=== PATIENT | female | born 1935 | race Caucasian/White ===

== ENCOUNTER 2020-02-06 10:14 | Outpatient (REF) | payer MEDICARE, SELFPAY ==
[2020-02-06 11:41] LABS: Hematocrit 38.5 % (37-47); Hemoglobin 12.8 g/dl (12.0-16.0); Mean Corpuscular HGB Conc 33.2 g/dl (31.0-35.0); Mean Corpuscular Hemoglobin 29.9 pg (27.0-33.0); Mean Platelet Volume 11.2 fL (9.4-12.3); Platelet Count 275 X10*3/uL (160-400); Red Blood Count 4.28 X10*6/uL (4.20-5.50); Red Cell Distribution Width 13.8 % (11.0-16.0); White Blood Count 6.1 X10*3/uL (4.8-10.8)
[2020-02-06 12:04] LABS: Alanine Aminotransferase 15 U/L (0-31); Albumin Level 4.5 g/dL (3.5-5.0); Alkaline Phosphatase 73 U/L (39-117); Anion Gap 14 (12-20); Aspartate Amino Transferase 19 U/L (5-31); Bilirubin Total 0.6 mg/dL (0.0-1.0); Blood Urea Nitrogen 19 mg/dL (9-16); Calcium 9.4 mg/dL (8.4-10.2); Carbon Dioxide 27 mmol/L (22-29); Chloride 103 mmol/L (96-108); Estimated Glomerular Filt Rate > 60; Glucose Random 103 mg/dL (60-115); Potassium 4.4 mmol/l (3.3-5.1); Sodium 140 mmol/L (135-145); Total Protein 7.4 g/dL (6.5-8.0)
[2020-02-06 12:13] LABS: Thyroid Stimulating Hormone 4.18 mIU/mL (0.32-4.0)
== END 2020-02-06 10:15 | disposition home or self-care (01) ==
LOC: HO.HMGCLDS 10:14
PROVIDERS: PCP Internal Medicine; Visit Provider Internal Medicine
DX: E03.9 Hypothyroidism, unspecified (principal); I10 Essential (primary) hypertension
CPT/HCPCS: 36415; 80053; 84443; 85027

== ENCOUNTER 2020-06-21 07:40 | Outpatient (REF) | payer MEDICARE, SELFPAY ==
[2020-06-21 12:03] LABS: TSH reflex Free T4 1.21 uIU/mL (0.32-4.0)
[2020-06-21 12:07] LABS: Alanine Aminotransferase 16 U/L (0-31); Albumin Level 4.5 g/dL (3.5-5.0); Alkaline Phosphatase 69 U/L (39-117); Anion Gap 12 (12-20); Aspartate Amino Transferase 18 U/L (5-31); Bilirubin Total 0.6 mg/dL (0.0-1.0); Blood Urea Nitrogen 18 mg/dL (9-16); Calcium 9.5 mg/dL (8.4-10.2); Carbon Dioxide 30 mmol/L (22-29); Chloride 105 mmol/L (96-108); Estimated Glomerular Filt Rate > 60; Glucose Fasting 97 mg/dL (60-99); Potassium 4.3 mmol/L (3.3-5.1); Sodium 143 mmol/L (135-145); Total Protein 7.4 g/dL (6.5-8.0)
== END 2020-06-21 07:41 | disposition home or self-care (01) ==
LOC: HO.HMGCLDS 07:40
PROVIDERS: PCP Internal Medicine; Visit Provider Internal Medicine
DX: E03.9 Hypothyroidism, unspecified (principal); I10 Essential (primary) hypertension; F41.9 Anxiety disorder, unspecified
CPT/HCPCS: 36415; 80053; 84443

== ENCOUNTER 2020-10-13 08:34 | Outpatient (REF) | payer MEDICARE, SELFPAY ==
[2020-10-13 11:43] LABS: Hematocrit 35.8 % (37-47); Hemoglobin 11.8 g/dl (12.0-16.0); Mean Corpuscular Hemoglobin 29.6 pg (27.0-33.0); Mean Corpuscular Volume 89.7 fL (80-98); Platelet Count 240 X10*3/uL (160-400); Red Blood Count 3.99 X10*6/uL (4.20-5.50); Red Cell Distribution Width 13.9 % (11.0-16.0); White Blood Count 5.9 X10*3/uL (4.8-10.8)
[2020-10-13 12:04] LABS: Alanine Aminotransferase 15 U/L (0-31); Albumin Level 4.4 g/dL (3.5-5.0); Alkaline Phosphatase 61 U/L (39-117); Anion Gap 12 (12-20); Aspartate Amino Transferase 17 U/L (5-31); Bilirubin Total 0.6 mg/dL (0.0-1.0); Blood Urea Nitrogen 21 mg/dL (9-16); Calcium 9.2 mg/dL (8.4-10.2); Carbon Dioxide 24 mmol/L (22-29); Chloride 110 mmol/L (96-108); Cholesterol 178 mg/dL; Estimated Glomerular Filt Rate > 60; Glucose Fasting 101 mg/dL (60-99); HDL Cholesterol 49 mg/dL; LDL Cholesterol Calculated 107 mg/dl; Sodium 142 mmol/L (135-145); Total Protein 6.9 g/dL (6.5-8.0); Triglycerides 114 mg/dL
[2020-10-13 12:25] LABS: TSH reflex Free T4 3.51 uIU/mL (0.32-4.0); Vitamin D 25-OH Total 38.3 ng/mL (>30)
[2020-10-13 12:27] LABS: Folate > 20.0 ng/mL (> or = 4.0); Vitamin B12 1117 pg/mL (200-900)
== END 2020-10-13 08:35 | disposition home or self-care (01) ==
LOC: HO.HMGCLDS 08:34
PROVIDERS: PCP Internal Medicine; Visit Provider Internal Medicine
DX: E03.9 Hypothyroidism, unspecified (principal); F41.9 Anxiety disorder, unspecified; I10 Essential (primary) hypertension; M19.90 Unspecified osteoarthritis, unspecified site
CPT/HCPCS: 36415; 80053; 80061; 82306; 82607; 82746; 84443; 85027

== ENCOUNTER 2020-10-29 08:39 | Outpatient (REF) | payer MEDICARE, SELFPAY ==
[2020-10-29 12:27] LABS: Folate 17.5 ng/mL (> or = 4.0); Vitamin B12 917 pg/mL (200-900)
== END 2020-10-29 08:40 | disposition home or self-care (01) ==
LOC: HO.HMGCLDS 08:39
PROVIDERS: PCP Internal Medicine; Visit Provider Internal Medicine
DX: E53.8 Deficiency of other specified B group vitamins (principal)
CPT/HCPCS: 36415; 82607; 82746

== ENCOUNTER 2020-12-28 10:00 | Outpatient (RCR) | payer MEDICARE, SELFPAY ==
--- NOTE | 2021-03-23 13:40 | MHC.PT.DC ---
[facility] [place] Office [place] Office [place] Office [address] Rhonda Sanches [address] [phone] F: [phone] F: [phone] F: [phone] F: [phone] Physical Therapy Discharge Report Diagnosis: R knee pain Date of Surgery: n/a Date of Evaluation: 12/01/20 Date of Discharge: 01/22/21 Treatments to Date: 5 Cancellations to Date: 0 No Shows to Date: 0 Discharge Status: Independent with HEP Discharge Summary: 12/28/20: pt still with similar pain presentation, though not present every day. we reviewed her HEP and pathology. educated her on importance of ROM/strength to reduce progression of disease. she is appropriate to d/c to HEP at this time. Patient is an 84 year old R handed Urdu speaking female who presents with s/s consistent with R knee pain. She is not working and has been fairly sedentary. Patient past medical history includes back pain and coritsone shots for her knee. Current impairments include pain, ROM, strength, safety, independence, activity tolerance and functional mobility. Functional limitations include decreased ability to walk, stand, transfer, negotiate stairs, and perform weight bearing activities.. Patient is motivated with good rehab potential. Skilled PT will address impairments and functional limitations in order to achieve goals. Electronically signed by: Bertin Patterson, PT Please sign and return to therapist. Thank you for your referral.
== END 2021-03-23 13:41 | disposition home or self-care (01) ==
LOC: HO.PTCHIC 10:00
PROVIDERS: PCP Internal Medicine; Visit Provider Internal Medicine
DX: M25.561 Pain in right knee (principal)
CPT/HCPCS: 97110; 97162

== ENCOUNTER 2021-02-10 11:41 | Outpatient (REF) | payer MEDICARE, MEDICAID, SELFPAY ==
--- NOTE | ~2021-02-10 | XR_ITS ---
EXAMINATION: KNEE X-RAY CLINICAL INFORMATION: Pain COMPARISON: Previous x-ray April 2018 TECHNIQUE: AP standing view of both knees and lateral and sunrise view of the right knee FINDINGS: Right: Bone alignment is normal. No fracture or dislocation is seen. There is arthritis at the medial femoral tibial and patellofemoral joints with joint space narrowing and osteophyte formation. There is a small joint effusion. There is atherosclerotic disease. Standing AP view of the left knee demonstrates medial femoral tibial joint space narrowing and atherosclerotic disease. XR/XR knee standing BI IMPRESSION: Bilateral arthritis, right greater than left. Atherosclerotic disease.
--- NOTE | ~2021-02-10 | XR_ITS ---
EXAMINATION: KNEE X-RAY CLINICAL INFORMATION: Pain COMPARISON: Previous x-ray April 2018 TECHNIQUE: AP standing view of both knees and lateral and sunrise view of the right knee FINDINGS: Right: Bone alignment is normal. No fracture or dislocation is seen. There is arthritis at the medial femoral tibial and patellofemoral joints with joint space narrowing and osteophyte formation. There is a small joint effusion. There is atherosclerotic disease. Standing AP view of the left knee demonstrates medial femoral tibial joint space narrowing and atherosclerotic disease. XR/XR knee RT 2V IMPRESSION: Bilateral arthritis, right greater than left. Atherosclerotic disease.
== END 2021-02-10 11:42 | disposition home or self-care (01) ==
LOC: HO.HOSX 11:41
PROVIDERS: Visit Provider Orthopaedic Surgery
DX: M17.31 Unilateral post-traumatic osteoarthritis, right knee (principal)
CPT/HCPCS: 73560; 73565; 99212

== ENCOUNTER 2021-03-02 08:28 | Outpatient (REF) | payer MEDICARE, MEDICAID, SELFPAY ==
[2021-03-02 11:40] LABS: Hematocrit 37.2 % (37.0-47.0); Hemoglobin 12.3 g/dl (12.0-16.0); Mean Corpuscular HGB Conc 33.1 g/dl (31.0-35.0); Mean Corpuscular Hemoglobin 29.7 pg (27.0-33.0); Mean Corpuscular Volume 89.9 fL (80.0-98.0); Mean Platelet Volume 11.7 fL (9.4-12.3); Platelet Count 253 X10*3/uL (160-400); Red Blood Count 4.14 X10*6/uL (4.20-5.50); Red Cell Distribution Width 13.7 % (11.0-16.0); White Blood Count 6.3 X10*3/uL (4.8-10.8)
[2021-03-02 11:55] LABS: Alanine Aminotransferase 18 U/L (0-31); Albumin Level 4.4 g/dL (3.5-5.0); Alkaline Phosphatase 68 U/L (39-117); Anion Gap 13 (12-20); Aspartate Amino Transferase 18 U/L (5-31); Bilirubin Total 0.7 mg/dL (0.0-1.0); Blood Urea Nitrogen 19 mg/dL (9-16); Calcium 9.7 mg/dL (8.4-10.2); Carbon Dioxide 29 mmol/L (22-29); Chloride 104 mmol/L (96-108); Estimated Glomerular Filt Rate > 60; Glucose Fasting 94 mg/dL (60-99); Potassium 4.4 mmol/L (3.3-5.1); Sodium 142 mmol/L (135-145); Total Protein 7.3 g/dL (6.5-8.0)
[2021-03-02 12:19] LABS: TSH reflex Free T4 5.44 uIU/mL (0.32-4.0)
[2021-03-02 13:09] LABS: Free T4 (Free Thyroxine) 0.96 ng/dL (0.71-1.85)
== END 2021-03-02 08:29 | disposition home or self-care (01) ==
LOC: HO.HMGCLDS 08:28
PROVIDERS: PCP Internal Medicine; Visit Provider Internal Medicine
DX: E03.9 Hypothyroidism, unspecified (principal); E53.8 Deficiency of other specified B group vitamins; I10 Essential (primary) hypertension
CPT/HCPCS: 36415; 80053; 84439; 84443; 85027

== ENCOUNTER → 2021-04-22 10:04 | Outpatient (BNVA) | payer MEDICARE, MEDICAID, SELFPAY | PROVIDERS: Visit Provider Orthopaedic Surgery | DX: M17.31 Unilateral post-traumatic osteoarthritis, right knee (principal) | CPT/HCPCS: 20610; 99212; J7325 ==

== ENCOUNTER → 2021-04-29 10:07 | Outpatient (BNVA) | payer MEDICARE, OTHER, SELFPAY | PROVIDERS: PCP Internal Medicine; Visit Provider Orthopaedic Surgery | DX: M17.31 Unilateral post-traumatic osteoarthritis, right knee (principal) | CPT/HCPCS: 20610; 99212; J7325 ==

== ENCOUNTER → 2021-05-06 10:07 | Outpatient (BNVA) | payer MEDICARE, MEDICAID, SELFPAY | PROVIDERS: PCP Internal Medicine; Visit Provider Physician Assistant | DX: M17.31 Unilateral post-traumatic osteoarthritis, right knee (principal) | CPT/HCPCS: 20610; J7321; J7325 ==

== ENCOUNTER 2021-10-20 09:35 | Outpatient (REF) | payer MEDICARE, OTHER, SELFPAY ==
[2021-10-20 12:08] LABS: Alanine Aminotransferase 15 U/L (0-31); Albumin Level 4.4 g/dL (3.5-5.0); Alkaline Phosphatase 69 U/L (39-117); Anion Gap 12 (12-20); Aspartate Amino Transferase 18 U/L (5-31); Bilirubin Total 0.8 mg/dL (0.0-1.0); Blood Urea Nitrogen 21 mg/dL (9-16); Calcium 9.6 mg/dL (8.4-10.2); Carbon Dioxide 29 mmol/L (22-29); Chloride 104 mmol/L (96-108); Cholesterol 216 mg/dL; Estimated Glomerular Filt Rate > 60; Glucose Fasting 103 mg/dL (60-99); HDL Cholesterol 56 mg/dL; LDL Cholesterol Calculated 135 mg/dl; Potassium 3.7 mmol/L (3.3-5.1); Sodium 141 mmol/L (135-145); Total Protein 7.1 g/dL (6.5-8.0); Triglycerides 127 mg/dL
[2021-10-20 12:57] LABS: Free T4 (Free Thyroxine) 0.89 ng/dL (0.71-1.85)
== END 2021-10-20 09:36 | disposition home or self-care (01) ==
LOC: HO.HMGCLDS 09:35
PROVIDERS: Visit Provider Internal Medicine
DX: F41.9 Anxiety disorder, unspecified (principal); I10 Essential (primary) hypertension; E03.9 Hypothyroidism, unspecified
CPT/HCPCS: 36415; 80053; 80061; 84439; 84443

== ENCOUNTER 2022-05-30 14:35 | Outpatient (REF) | payer MEDICARE, MEDICAID, SELFPAY ==
[2022-05-30 15:52] LABS: Influenza A PCR NEGATIVE (Negative); Influenza B PCR NEGATIVE (Negative); Resp Syncy Virus RNA Qual PCR NEGATIVE (Negative); SARS COV2 PCR INHOUSE NEGATIVE (Negative)
== END 2022-05-30 14:36 | disposition home or self-care (01) ==
LOC: HO.LNP 14:35
PROVIDERS: Visit Provider Internal Medicine
DX: Z20.822 Contact with and (suspected) exposure to COVID-19 (principal); R43.9 Unspecified disturbances of smell and taste
CPT/HCPCS: 0241U

== ENCOUNTER 2022-06-15 09:21 | Outpatient (REF) | payer MEDICARE, MEDICAID, SELFPAY ==
--- NOTE | ~2022-06-15 | XR_ITS ---
EXAMINATION: XR CHEST CLINICAL INFORMATION: Pneumonia, unspecified organism. COMPARISON: None TECHNIQUE: 2 views of the chest were obtained. FINDINGS: Support devices: Right central venous port with tip terminating in the superior vena cava. No significant abnormality is noted involving the heart, lungs, mediastinum, bony thorax or soft tissues. XR/XR chest 2V IMPRESSION: No acute cardiopulmonary process.
== END 2022-06-15 09:22 | disposition home or self-care (01) ==
LOC: HO.HMGCX 09:21
PROVIDERS: PCP Internal Medicine; Visit Provider Internal Medicine
DX: J18.9 Pneumonia, unspecified organism (principal); R06.02 Shortness of breath
CPT/HCPCS: 71046

== ENCOUNTER 2022-06-26 14:55 | Outpatient (REF) | payer MEDICARE, MEDICAID, SELFPAY ==
[2022-06-26 16:25] LABS: MANUAL DIFF FLAG NO
[2022-06-26 16:28] LABS: Red Blood Count 2.63 X10*6/uL (4.20-5.50); White Blood Count 3.8 X10*3/uL (4.8-10.8)
[2022-06-26 16:29] LABS: Basophils Percent Auto 0.3 % (0-2); Eosinophils Absolute Auto 0.1 X10*3/uL (0.0-0.4); Eosinophils Percent Auto 1.9 % (0-4); Hemoglobin 8.3 g/dl (12.0-16.0); Imm Gran Abs Auto 0.06 X10*3/uL (0.00-0.03); Imm Gran Pct Auto 1.6 % (0.0-0.4); Lymphocytes Absolute Auto 1.2 X10*3/uL (1.2-4.9); Lymphocytes Percent Auto 31.2 % (20-40); Mean Corpuscular HGB Conc 33.2 g/dl (31.0-35.0); Mean Corpuscular Hemoglobin 31.6 pg (27.0-33.0); Mean Corpuscular Volume 95.1 fL (80.0-98.0); Mean Platelet Volume 11.4 fL (9.4-12.3); Monocytes Absolute Auto 0.5 X10*3/uL (0.1-1.2); Monocytes Percent Auto 12.5 % (2-11); Neutrophils Percent Auto 52.5 % (45-73); Red Cell Distribution Width 19.4 % (11.0-16.0)
[2022-06-26 16:50] LABS: Platelet Count 67 X10*3/uL (160-400)
[2022-06-26 16:56] LABS: B Type Natriuretic Peptide 58 pg/mL (<100)
[2022-06-26 17:01] LABS: Alanine Aminotransferase 13 U/L (0-31); Alkaline Phosphatase 69 U/L (39-117); Anion Gap 11 (12-20); Aspartate Amino Transferase 18 U/L (5-31); Bilirubin Total 0.3 mg/dL (0.0-1.0); Blood Urea Nitrogen 21 mg/dL (9-16); Calcium 8.9 mg/dL (8.4-10.2); Carbon Dioxide 28 mmol/L (22-29); Chloride 108 mmol/L (96-108); Estimated Glomerular Filt Rate 60; Glucose Random 102 mg/dL (60-115); Sodium 143 mmol/L (135-145); Total Protein 6.3 g/dL (6.5-8.0)
[2022-06-26 17:15] LABS: TSH reflex Free T4 2.23 uIU/mL (0.32-4.0)
== END 2022-06-26 14:56 | disposition home or self-care (01) ==
LOC: HO.HMGCLDS 14:55
PROVIDERS: PCP Internal Medicine; Visit Provider Internal Medicine
DX: I10 Essential (primary) hypertension (principal); E03.9 Hypothyroidism, unspecified; F41.9 Anxiety disorder, unspecified
CPT/HCPCS: 36415; 80053; 83880; 84443; 85025

== ENCOUNTER 2022-10-18 08:38 | Outpatient (REF) | payer MEDICARE, MEDICAID, SELFPAY | END 2022-10-18 08:39 | disposition home or self-care (01) | LOC: HO.HMGCLDS 08:38 | PROVIDERS: PCP Internal Medicine; Visit Provider Internal Medicine | DX: I10 Essential (primary) hypertension (principal); E03.9 Hypothyroidism, unspecified; R60.9 Edema, unspecified | CPT/HCPCS: 36415; 80053; 83880; 84443; 85025 ==

== ENCOUNTER → 2022-10-27 12:54 | Outpatient (REF) | payer MEDICARE, MEDICAID, SELFPAY ==
--- NOTE | 2022-10-27 12:57 | CA_ITS ---
Transthoracic Echocardiogram Patient (Last, First, Middle): Hilary Zeng, Gender: Female Date of : 1935 Age: 86 Procedure Date: 10/27/2022 Procedure Type: Transthoracic Echocardiogram Location: OP Height: 149.86 cm Weight: 65.77 kg BSA: 1.61 m2 Heart Rate: 65 bpm BP: 180 / 80 mmHg Lye Boiler: DIONTE Harvey MD: Josselin Up MD Thermometer Tester: Russ Jeong MD Symptoms: R60.9 - Edema, unspecified Study Quality: Adequate ECG Rhythm: Arrythmia Conclusions: - 1. Normal LV systolic function with elevated filling pressures 2. Moderately dilated left atrium 3. Mild mitral regurgitation 4. Normal RV systolic pressure 5. No gross pericardial effusion Findings Left Ventricle Normal left ventricular size, thickness, and systolic function. The visually estimated ejection fraction is between 60-65%. Spectral Doppler is indicative of an impaired relaxation filling pattern. E/E prime ratio is >15, consistent with elevated filling pressures. Peak GLS is -18.9%, within normal limits. Right Ventricle Normal right ventricular cavity size and systolic function. Atria The left atrium is moderately dilated. Interatrial shunt cannot be excluded. The right atrium is likely dilated. Aortic Valve There is mild calcification of the aortic valve. There is no aortic valve stenosis. There is no aortic valve regurgitation. Mitral Valve There is mild anterior and posterior mitral leaflet thickening. There is mild mitral valve regurgitation. There is no mitral valve stenosis. Pulmonic Valve The pulmonic valve was not well visualized. Tricuspid Valve Likely normal tricuspid valve structure and function. There is trace tricuspid valve regurgitation. The right ventricular systolic pressure is normal. The right ventricular systolic pressure is 16 mmHg. Normal right atrial pressure. There is no evidence of pulmonary hypertension. Great Vessels The pulmonary artery was not well visualized. There is mild dilatation of the ascending aorta. Venous The inferior vena cava is normal in size and collapses greater than 50% with inspiration. Pericardium/Pleural There is no evidence of pericardial effusion. Prior Study Comparison No prior study available for comparison. Measurements 2D Linear Measurements IVSd: 1.29 0.6-0.9/0.6-1.0 cm LVIDd: 3.89 3.9-5.3/4.2-5.9 cm LVIDd Index: 2.42 2.4-3.2/2.2-3.1 cm/m2 LVIDs: 2.14 2.0-3.6 cm LVPWd: 1.30 0.7-1.1 cm LA Diam: 3.70 2.7-3.8/3.0-4.0 cm LAIDs Index: 2.30 1.5-2.3 cm/m2 LV Mass: 221.76 67-162/88-224 g LV Mass Index: 137.74 43-95/49-115 g/m2 LVOT Diam: 1.90 3.0+(-)1.3 cm 2D Systolic Function EF 4C: 60.20 >55% EF 2C: 64.50 >55% EF BiP: 61.70 >55% Mitral Valve MV Pk E: 1.18 MV PK A: 1.38 MV Decel Time: 236.00 E/A: 0.90 E'Lateral: 5.87 E'Medial: 5.11 E/E' Med: 23.10 E/E' Lat: 20.10 PHT: 69.00 MVA PHT: 3.19 Decel [place]: 4.97 Aortic Valve AoV Pk Al: 1.53 AoV Mn Al: 1.05 AoV VTI: 0.34 AoV Pk Grad: 9.00 Aov Mn Grad: 5.00 CHERY Cont.VTI: 1.81 LVOT LVOT Pk Al: 0.97 LVOT Mn Al: 0.66 LVOT VTI: 0.22 LVOT Pk Grad: 4.00 LVOT Mn Grad: 2.00 LVOT Diam: 1.90 LVOT Area: 2.84 Diastolic Function MV Pk E: 1.18 MV Pk A: 1.38 E/A: 0.90 E'Medial: 5.11 E/E' Med: 23.10 E' Laterial: 5.87 E/E' Lat: 20.10 Right Ventricle TAPSE (mm): 25.20 TVS' Al: 12.60 Tricuspid Valve TR Pk Al: 1.79 TR Pk Grad: 13.00 RA Press: 3.00 RVSP: 16.00 Great Vessels Aorta Sinus of Valsalva: 3.50 2.0-3.5 cm Ao Asc: 3.60 2.1-3.4 cm Pulmonary Valve PV Pk Al: 0.92 Peak PV Grad: 3.00 Updated in Other Vendor System with Status of Final Russ Jeong MD electronically signed on 10/27/2022 4:20:39 PM with status of Final
== END ==
LOC: HO.CARD 12:54
PROVIDERS: PCP Internal Medicine; Visit Provider Internal Medicine
DX: R06.02 Shortness of breath (principal); R60.9 Edema, unspecified
CPT/HCPCS: 93306; 93356

== ENCOUNTER → 2022-10-27 12:57 | Outpatient (BNV) | payer MEDICARE, MEDICAID, SELFPAY | PROVIDERS: PCP Internal Medicine; Visit Provider Internal Medicine Cardiovascular Disease | DX: I34.0 Nonrheumatic mitral (valve) insufficiency (principal) | CPT/HCPCS: 93306 ==

== ENCOUNTER 2023-01-23 10:53 | Outpatient (AMB) | payer MEDICARE, MEDICAID, SELFPAY ==
[2023-01-23 11:15] VITALS: BP 118/62; PULSE 82; O2SAT 97; BMI 28.5
--- NOTE | 2023-01-23 11:15 | MHC.PC.OV ---
Vital Signs 01/23/23 11:15 Height 4 ft 11 in Weight 141 lb BMI 28.5 BP 118/62 Blood Pressure Location Lt brachial Position Sitting Pulse 82 Pulse Source Pulse Oximeter Pulse Oximetry (%) 97 Oxygen Delivery Method Room Air Intake Visit Reasons: Annual PE/HTN Intake Note: Pt is here today for PE. Allergies No Known Allergies Allergy (Verified 01/23/23 11:15) Medication List - Last Reconciled 01/23/23 by Josselin Up MD albuterol sulfate 90 mcg/actuation (Ventolin HFA) 1 inh inhalation QID PRN aspirin 81 mg PO DAILY barium sulfate 2%(w/v) (Readi-Cat 2) mL PO cetirizine (Zyrtec) 10 mg PO DAILY cholecalciferol (vitamin D3) 25 mcg PO DAILY cyanocobalamin (vitamin B-12) 1,000 mcg PO DAILY furosemide (Lasix) 20 mg PO DAILY levothyroxine 150 mcg PO DAILY losartan-hydrochlorothiazide 50-12.5 mg 1 tab PO DAILY jxuyvqrmyqnf-xburdlml-ztrzpe 1 tab PO DAILY oxycodone mg PO polyethylene glycol 3350 (Miralax) 17 grams PO DAILY trazodone 50 mg PO BEDTIME Tobacco use date assessed: 01/23/23 Fall risk assessment: No Falls in past year Last assessed Fall Risk: 01/23/23 Dental Screening Dental Screen Date: 01/23/23 Did you have a dental visit in the last 12 months?: No Did you have a dental problem in the last 6 months where you did not have access to dental care?: No Was dental information given to patient?: Patient declined HPI Annual PE/HTN HPI Details Pt presents for PE. HTN and hypothyroid are stable on meds. Pt c/o chronic abd pain and constipation and f/u with GI. Pt f/u with urology for renal ca and getting chemotherapy. [facility] Medical History Vitamin B 12 deficiency Knee pain, right Anxiety Osteoarthritis IBS (irritable bowel syndrome) Hypothyroidism Diverticulosis HTN (hypertension) Surgical History H/O colonoscopy History of section Family History Father No problems noted. Mother Hypertension Sister No problems noted. Social History Housing: House Alcohol intake: never Patient Tobacco Use Status: Never used Tobacco e-Cigarette/Vaping Use: Never Used Second Hand Smoke Exposure: No service: No Current occupational status: retired Current occupational exposures/hazards: No Cognitive needs: No Hearing needs: No Vision needs: No Questionnaire Thrive Questionnaire Date Thrive assessed: 10/19/22 AUDIT C Alcohol Use Questionnaire (AUDIT-C) 1. How often do you have a drink containing alcohol?: Never 3. How often do you have six or more drinks on one occasion?: Never Total Score: 0 RAFI-7 AMB Questionnaire RAFI-7 Date RAFI - 7 assessed: 10/19/22 Source: Developed by Drs. Dewayne Tam, Annie Sanchez, Koby Mercado and colleagues, with an educational eladoi from [employer]. Review of Systems Const All systems reviewed & are unremarkable except as noted in HPI and below Reports no additional complaints Eyes Reports no additional complaints ENT Reports no additional complaints Card Reports no additional complaints Resp Reports no additional complaints GI Reports no additional complaints Reports no additional complaints Physical exam (Primary Care) Vital Signs: Last Vital Signs Pulse 82 01/23/23 11:15 BP 118/62 01/23/23 11:15 Pulse Ox 97 01/23/23 11:15 Oxygen Delivery Method Room Air 01/23/23 11:15 BMI result Body Mass Index 28.5 Tobacco/Smoking Status: Tobacco use Status Tobacco use date assessed 01/23/23 01/23/23 11:41 Patient Tobacco Use Status Never used Tobacco 01/23/23 11:41 e-Cigarette/Vaping Use Never Used 01/23/23 11:15 Thrive Assessment: Date of Thrive Assessment Date Thrive assessed 10/19/22 01/23/23 11:15 Const General: no acute distress HENMT Head: Yes normal to inspection Face and sinus: Yes normal facial exam Throat: Yes posterior oropharynx normal Resp Effort & Inspection: normal respiratory effort Auscultation: clear to auscultation bilaterally Cardio Rhythm: regular rhythm Heart sounds: S1 normal heart sound present and S2 normal heart sound present GI Inspection: Yes normal to inspection Palpation (GI): Soft to palpation Percussion: Yes normal to percussion Auscultation: normal bowel sounds Assessment and Plan Assessment & Plan (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 Taylor [facility], getting Chemo good response 07/06 Code(s): C65.9 - Malignant neoplasm of unspecified renal pelvis Plan: f/u with urology (2) Hypothyroidism: Code(s): E03.9 - Hypothyroidism, unspecified Plan: cont Levothyroxine (3) HTN (hypertension): Comment: BP goal < 130/80 Code(s): I10 - Essential (primary) hypertension Plan: cont meds (4) Annual physical exam: Code(s): Z00.00 - Encounter for general adult medical examination without abnormal findings Plan: well balanced diet, regular physical activity, f/u 6 months with labs before. Orders: Orders Comprehensive [place]. Panel Fast 6 Months E03.9 - Hypothyroidism, unspecified, I10 - Essential (primary) hypertension, R10.9 - Unspecified abdominal pain, R73.9 - Hyperglycemia, unspecified, Z00.00 - Encounter for general adult medical examination without abnormal findings Hemoglobin A1c 6 Months E03.9 - Hypothyroidism, unspecified, I10 - Essential (primary) hypertension, R10.9 - Unspecified abdominal pain, R73.9 - Hyperglycemia, unspecified, Z00.00 - Encounter for general adult medical examination without abnormal findings Complete Blood Count Auto Diff 6 Months E03.9 - Hypothyroidism, unspecified, I10 - Essential (primary) hypertension, R10.9 - Unspecified abdominal pain, R73.9 - Hyperglycemia, unspecified, Z00.00 - Encounter for general adult medical examination without abnormal findings TSH reflex Free T4 6 Months E03.9 - Hypothyroidism, unspecified, I10 - Essential (primary) hypertension, R10.9 - Unspecified abdominal pain, R73.9 - Hyperglycemia, unspecified, Z00.00 - Encounter for general adult medical examination without abnormal findings Medications: Refilled trazodone 50 mg PO BEDTIME 90 tabs 2RF Coding Level of Care Code Est Pt Prev Care >65y(25167) Diagnoses Renal pelvis transitional cell malignant neoplasm C65.9 Hypothyroidism E03.9 HTN (hypertension) I10 Annual physical exam Z00.00
== END 2023-01-23 12:11 | disposition home or self-care (01) ==
PROVIDERS: Visit Provider Internal Medicine
DX: C65.9 Malignant neoplasm of unspecified renal pelvis (principal); E03.9 Hypothyroidism, unspecified; I10 Essential (primary) hypertension; Z00.00 Encounter for general adult medical examination without abnormal findings
CPT/HCPCS: 99397

== ENCOUNTER 2023-03-13 09:45 | Outpatient (AMB) | payer MEDICARE, MEDICAID, SELFPAY ==
--- NOTE | 2023-03-13 09:59 | MHC.PC.OV ---
Vital Signs 03/13/23 10:00 Height 4 ft 11 in Weight 141 lb BMI 28.5 BP 144/66 H Blood Pressure Location Lt brachial Position Sitting Pulse 81 Pulse Source Pulse Oximeter Pulse Oximetry (%) 99 Oxygen Delivery Method Room Air Intake Visit Reasons: Follow up to discuss on going issue Intake Note: Pt is here today for a follow up visit. Pt states that she still has lower abdominal pain. Pt states that she was seen by GI and they told her to follow up with PCP as there is nothing they can do. Pt states that she thinks it might be her ovaries. Allergies No Known Allergies Allergy (Verified 03/13/23 10:06) Tobacco use date assessed: 01/23/23 HPI Follow up to discuss on going issue HPI Details Patient presents for the follow-up. Hypertension and hypothyroidism are controlled on current medications. Patient complains of persistent lower abdominal pain for many years and have tried different medications for IBS including nortriptyline and gabapentin without significant relief. Patient is undergoing chemotherapy for renal CA and was prescribed oxycodone by urologist. Patient states the pain is worse at night when she lays down but she denies pain during a day, nausea vomiting change in bowel habits or urination, fever chills, weight loss PFSH Medical History Vitamin B 12 deficiency Knee pain, right Anxiety Osteoarthritis IBS (irritable bowel syndrome) Hypothyroidism Diverticulosis HTN (hypertension) Surgical History H/O colonoscopy History of section Family History Father No problems noted. Mother Hypertension Sister No problems noted. Housing: House Alcohol intake: never Patient Tobacco Use Status: Never used Tobacco e-Cigarette/Vaping Use: Never Used Second Hand Smoke Exposure: No service: No Current occupational status: retired Current occupational exposures/hazards: No Cognitive needs: No Hearing needs: No Vision needs: No Questionnaire Thrive Questionnaire Date Thrive assessed: 10/19/22 RAFI-7 AMB Questionnaire RAFI-7 Date RAFI - 7 assessed: 10/19/22 Source: Developed by Drs. Dewayne L. Annie Tam, Koby Mercado and colleagues, with an educational eladio from [employer]. Review of Systems Const All systems reviewed & are unremarkable except as noted in HPI and below Reports no additional complaints Eyes Reports no additional complaints ENT Reports no additional complaints Card Reports no additional complaints Resp Reports no additional complaints GI Reports no additional complaints Reports no additional complaints Physical exam (Primary Care) Vital Signs: Last Vital Signs Pulse 81 03/13/23 10:00 BP 144/66 H 03/13/23 10:00 Pulse Ox 99 03/13/23 10:00 Oxygen Delivery Method Room Air 03/13/23 10:00 BMI result Body Mass Index 28.5 Tobacco/Smoking Status: Tobacco use Status Tobacco use date assessed 01/23/23 03/13/23 10:05 Patient Tobacco Use Status Never used Tobacco 03/13/23 10:05 e-Cigarette/Vaping Use Never Used 03/13/23 10:05 Thrive Assessment: Date of Thrive Assessment Date Thrive assessed 10/19/22 03/13/23 10:05 Const General: no acute distress HENMT Head: Yes normal to inspection Ears: hearing grossly normal bilaterally Resp Effort & Inspection: normal respiratory effort Auscultation: clear to auscultation bilaterally Cardio Rhythm: regular rhythm Heart sounds: S1 normal heart sound present and S2 normal heart sound present GI Inspection: Yes normal to inspection Palpation (GI): Soft to palpation Percussion: Yes normal to percussion Auscultation: normal bowel sounds Assessment and Plan Assessment & Plan (1) Abdominal pain: Comment: chronic, negative GI w/u, undergoing chemo for ca, gabapentin nortriptyline and dicyclomine not affective Code(s): R10.9 - Unspecified abdominal pain Plan: Patient was advise to avoid taking opiates for chronic abdominal pain because of risk of dependence and tolerance. She was advised to try CBD oil, (2) HTN (hypertension): Comment: BP goal < 130/80 Code(s): I10 - Essential (primary) hypertension Plan: Continue current medication (3) Hypothyroidism: Code(s): E03.9 - Hypothyroidism, unspecified Plan: Continue levothyroxine Coding Level of Care Code Est Pt Level 4 (38119) Diagnoses Abdominal pain R10.9 HTN (hypertension) I10 Hypothyroidism E03.9
[2023-03-13 10:00] VITALS: BP 144/66; PULSE 81; O2SAT 99; BMI 28.5
== END 2023-03-13 10:30 | disposition home or self-care (01) ==
PROVIDERS: PCP Internal Medicine; Visit Provider Internal Medicine
DX: R10.9 Unspecified abdominal pain (principal); I10 Essential (primary) hypertension; E03.9 Hypothyroidism, unspecified
CPT/HCPCS: 99214

== ENCOUNTER 2023-04-04 09:46 | Outpatient (AMB) | payer MEDICARE, MEDICAID, SELFPAY ==
[2023-04-04 10:31] VITALS: BP 134/78; BMI 27.9
--- NOTE | 2023-04-04 10:31 | MHC.OFFVIS ---
Intake Vital Signs 04/04/23 10:31 Height 4 ft 11 in Weight 138 lb BMI 27.9 BP 134/78 Intake Visit Reasons: New patient Pelvic pain Audio Production Instructor Required: Yes Audio Production Instructor Language: Finnish Audio Production Instructor Name: Ravinder [email or web address] Information Interpreted: non-clinical & clinical Law Office Assistant: Law Office Assistant Present (Margo) Allergies No Known Allergies Allergy (Verified 04/04/23 10:33) Is last menstrual period known: No Post menopausal: Yes Patient : No HPI HPI Comments History of Present Illness Details Presenting complaining of pelvic pain associated with vaginal bleeding during urination, the patient is unsure if this was vaginal bleeding or hematuria , no other associated symptoms. No history of abnormal Pap smear PFSH Medical History Vitamin B 12 deficiency Knee pain, right Anxiety Osteoarthritis IBS (irritable bowel syndrome) Hypothyroidism Diverticulosis HTN (hypertension) Surgical History H/O colonoscopy History of section Family History Father No problems noted. Mother Hypertension Sister No problems noted. Social History Housing: House Alcohol intake: never Patient Tobacco Use Status: Never used Tobacco e-Cigarette/Vaping Use: Never Used Second Hand Smoke Exposure: No Patient : No service: No Current occupational status: retired Current occupational exposures/hazards: No Cognitive needs: No Hearing needs: No Vision needs: No Female Reproductive History Menstrual control method: none Total pregnancies: 5 Full term: 5 Number of Living Children: 2 Review of Systems Const All systems reviewed & are unremarkable except as noted in HPI and below Physical Exam Vital Signs: Last Vital Signs BP 134/78 04/04/23 10:31 BMI result Body Mass Index 27.9 General: Yes no CVA tenderness External Female Exam: normal external appearance and normal appearance of the urethra Speculum Exam - Vagina: normal appearance of the vagina, normal palpation, no lesions and no masses Speculum Exam - Cervix: normal appearance of the cervix, normal palpation, no lesions, no masses and nontender Bimanual exam- vagina & uterus: normal bimanual exam, normal palpation, uterine size normal, normal palpation, uterine shape normal, No Cervical tenderness present and non-tender Bimanual Exam- Adnexa, other: normal adnexae Back/Spine/Pelvis Back: no CVA tenderness Assessment & Plan Assessment & Plan (1) Postmenopausal bleeding: Code(s): N95.0 - Postmenopausal bleeding Plan: Discussed with the patient the differential diagnosis of post menopausal bleeding with normal pelvic exam including but not limited to, endometrial hyperplasia, cancer, polyps and other causes; co testing done, recommended ultrasound to measure the endometrial stripe; discussed with the patient that if the endometrial thickness is 4 mm or less the negative predictive value of endometrial pathology is 99%, otherwise If endometrial thickness is more than 4 mm will proceed with endometrial sampling versus hysteroscopy D&C polypectomy depending on the ultrasound findings. Instructed the patient to schedule an ultrasound follow-up appointment in 2 weeks. All questions answered, the patient verbalized understanding and agreed with the plan. (2) Pelvic pain: Code(s): R10.2 - Pelvic and perineal pain Plan: Urine dip done in the office was negative. pelvic ultrasound ordered. Discussed with the patient the differential diagnosis of pelvic pain including but not limited to adnexal, uterine masses, pelvic infections (PID), GI the (Irritable bowel syndrome, diverticulitis, others), , musculoskeletal, myofascial pain abdominal wall , adhesions, psychological and others causes. Will check results and treat accordingly. All questions answered, the patient verbalized understanding. Instructed the patient to schedule follow-up appointment in 2 weeks (3) Microscopic hematuria: Code(s): R31.29 - Other microscopic hematuria Plan: Urine dip showed microscopic hematuria, will send urine for culture and repeat urine dip in 2 weeks, if persistent microscopic hematuria with negative urine culture will order CT scan of abdomen and pelvis and refer to urology Orders: Orders US pelvic and transvaginal Today N95.0 - Postmenopausal bleeding, R10.2 - Pelvic and perineal pain Coding Level of Care Code New Pt Level 3 (66638) Diagnoses Postmenopausal bleeding N95.0 Pelvic pain R10.2 Microscopic hematuria R31.29
== END 2023-04-04 11:29 | disposition home or self-care (01) ==
LOC: HO.HWS 09:46
PROVIDERS: PCP Internal Medicine; Visit Provider Obstetrics & Gynecology
DX: N95.0 Postmenopausal bleeding (principal); R10.2 Pelvic and perineal pain; R31.29 Other microscopic hematuria
CPT/HCPCS: 99203

== ENCOUNTER 2023-04-04 09:46 | Outpatient (REF) | payer MEDICARE, MEDICAID, SELFPAY ==
[2023-04-07 08:58] LABS: HPV mRNA E6/E7 rflx Not Detected (Not Detected)
== END 2023-04-04 09:47 | disposition home or self-care (01) ==
LOC: HO.LNP 09:46
PROVIDERS: PCP Internal Medicine; Visit Provider Obstetrics & Gynecology
DX: N95.0 Postmenopausal bleeding (principal); R10.2 Pelvic and perineal pain; R31.29 Other microscopic hematuria; Z78.0 Asymptomatic menopausal state
CPT/HCPCS: 81003; 87086; 87624; 88142; 99202

== ENCOUNTER 2023-05-02 15:02 | Outpatient (REF) | payer MEDICARE, OTHER, SELFPAY ==
--- NOTE | ~2023-05-02 | US_ITS ---
EXAMINATION: US PELVIS CLINICAL INFORMATION: Pelvic and perineal pain Postmenopausal COMPARISON: CT scan abdomen and pelvis 09/06/2018 TECHNIQUE: Ultrasound of the pelvis is performed using both transabdominal and transvaginal transducers along with Doppler. Transvaginal imaging is performed due to inadequate visualization transabdominally. FINDINGS: Uterus: The uterus is anteverted and measures 7.1 x 2.7 x 4.4 cm. 1.0 x 1.0 x 1.1 cm fundal intramural fibroid is seen. Calcifications are seen within the uterus, likely vascular in origin. The endometrium is not seen with certainty. Adnexa: Right ovary measures 2.8 x 1.5 x 2.2 cm. Volume 4.8 cm The left ovary is not seen. US/US pelvic and transvaginal IMPRESSION: 1. 1.1 cm fundal intramural fibroid. 2. Normal right ovary. The left ovary is not seen.
== END 2023-05-02 15:03 | disposition home or self-care (01) ==
LOC: HO.US 15:02
PROVIDERS: PCP Internal Medicine; Visit Provider Obstetrics & Gynecology
DX: R10.2 Pelvic and perineal pain (principal); N95.0 Postmenopausal bleeding
CPT/HCPCS: 76830; 76856

== ENCOUNTER → 2023-05-22 14:27 | Outpatient (BNVA) | payer MEDICARE, MEDICAID, SELFPAY | PROVIDERS: PCP Internal Medicine; Visit Provider Obstetrics & Gynecology ==

== ENCOUNTER 2023-06-13 15:58 | Outpatient (AMB) | payer MEDICARE, MEDICAID, SELFPAY ==
--- NOTE | 2023-06-11 14:50 | MHC.OFFVIS ---
Intake Intake Visit Reasons: U/S results Allergies No Known Allergies Allergy (Verified 04/04/23 10:33) HPI HPI Comments History of Present Illness Details The patient is scheduled tele health visit with her son for ultrasound follow-up. The patient was seen few weeks ago for vaginal bleeding upon urination, was unsure if it is from voiding or vaginal bleeding. Urine dip in the office showed microscopic hematuria, urine culture was sent and was negative. Pelvic ultrasound ordered showed the following: Uterus: The uterus is anteverted and measures 7.1 x 2.7 x 4.4 cm. 1.0 x 1.0 x 1.1 cm fundal intramural fibroid is seen. Calcifications are seen within the uterus, likely vascular in origin. The endometrium is not seen with certainty. Adnexa: Right ovary measures 2.8 x 1.5 x 2.2 cm. Volume 4.8 cm The left ovary is not seen. The patient is still complaining of pelvic pain, no more bleeding preop [facility] Medical History Vitamin B 12 deficiency Knee pain, right Anxiety Osteoarthritis IBS (irritable bowel syndrome) Hypothyroidism Diverticulosis HTN (hypertension) Surgical History H/O colonoscopy History of section Family History Father No problems noted. Mother Hypertension Sister No problems noted. Social History Housing: House Alcohol intake: never Patient Tobacco Use Status: Never used Tobacco e-Cigarette/Vaping Use: Never Used Second Hand Smoke Exposure: No service: No Current occupational status: retired Current occupational exposures/hazards: No Cognitive needs: No Hearing needs: No Vision needs: No Review of Systems Const All systems reviewed & are unremarkable except as noted in HPI and below Reports as per HPI and Reports no additional complaints GI Reports no additional complaints Reports no additional complaints Assessment & Plan Assessment & Plan (1) Microscopic hematuria: Comment: History of renal pelvis transitional cell malignant neoplasm Code(s): R31.29 - Other microscopic hematuria Plan: Discussed with the patient her son negative urine culture, next step history repeat urine dip to rule out persistent microscopic hematuria (2) Postmenopausal bleeding: Code(s): N95.0 - Postmenopausal bleeding Plan: Discussed with the patient the pelvic ultrasound findings, the endometrial stripe thickenss was not able to be measured by ultrasound . Recommended to the patient that the next step is an endometrial sampling via hysteroscopy D&C possible polypectomy versus endometrial biopsy to r/o endometrial pathology including hyperplasia or cancer. All the pros and cons risks and benefits of each approach were discussed with the patient, endometrial biopsy being less invasive, office procedure with less sensitivity and inability diagnose a polyp and removal versus hysteroscopy done under anesthesia more invasive more sensitive to endometrial cancer and possibility of diagnosing and endometrial polyp with the possibility of polypectomy. All questions were answered pt verbalized understanding and decided to proceed with endometrial biopsy. Instructions given the patient to schedule a follow-up appointment for EMB stuart. All questions answered, the patient verbalized understanding. I spent a total of 20 minutes reviewing the chart, talking to the patient via phone and documenting in the medical record. I spent a total of 20 minutes reviewing the chart, talking to the patient via phone and documenting in the medical record. 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 Will repeat pelvic ultrasound periodically. Instructions given to patient to call in case any of the following occurs: pressure symptoms, abnormal uterine bleeding, pelvic pain; and to schedule a future office follow-up appointment for reassessment and to order a repeat ultrasound . All questions answered, the patient verbalized understanding and agreed with the plan . Telehealth Telehealth Location of provider rendering services: practice address Location of patient: address on file Patient Identification confirmed using: Name, : Yes Telehealth method: voice only Patient verbally consented to treatment: Yes Patient verbally consented to billing insurance company: Yes Patient informed of any privacy concerns related to visit: Yes Coding Level of Care Code Tele Est Pt Level 1 (81248) Diagnoses Microscopic hematuria R31.29 Postmenopausal bleeding N95.0 Uterine myoma D25.9
== END 2023-06-13 16:17 ==
LOC: HO.HWS 15:59
PROVIDERS: PCP Internal Medicine; Visit Provider Obstetrics & Gynecology
DX: R31.29 Other microscopic hematuria (principal); N95.0 Postmenopausal bleeding; D25.9 Leiomyoma of uterus, unspecified
CPT/HCPCS: 99211

== ENCOUNTER → 2023-06-13 15:58 | Outpatient (BNVA) | payer MEDICARE, MEDICAID, SELFPAY | PROVIDERS: PCP Internal Medicine; Visit Provider Obstetrics & Gynecology | DX: R31.29 Other microscopic hematuria (principal); N95.0 Postmenopausal bleeding; D25.9 Leiomyoma of uterus, unspecified ==

== ENCOUNTER 2023-06-18 13:47 | Outpatient (REF) | payer MEDICARE, MEDICAID, SELFPAY | END 2023-06-18 13:48 | disposition home or self-care (01) | LOC: HO.LNP 13:47 | PROVIDERS: PCP Internal Medicine; Visit Provider Obstetrics & Gynecology | DX: N95.0 Postmenopausal bleeding (principal) | CPT/HCPCS: 58100; 88305 ==

== ENCOUNTER 2023-06-18 13:47 | Outpatient (AMB) | payer MEDICARE, MEDICAID, SELFPAY ==
[2023-06-18 14:20] VITALS: BP 110/60; BMI 27.6
--- NOTE | 2023-06-18 14:20 | MHC.OFFVIS ---
Intake Vital Signs 06/18/23 14:20 Height 4 ft 11 in Weight 136 lb 10.986 oz BMI 27.6 BP 110/60 Intake Visit Reasons: EMB Chair Spring Assembler Required: Yes Chair Spring Assembler Language: Kyrgyz Information Interpreted: non-clinical & clinical Director Career: Director Career Present (Margo ARRIAZA) Accompanied by: Son Allergies No Known Allergies Allergy (Verified 06/18/23 14:22) Post menopausal: Yes HPI HPI Comments History of Present Illness Details Presenting for follow-up ultrasound regarding postmenopausal bleeding endometrial stripe was not able to be measured COUNTS INCLUDE 234 BEDS AT THE [facility] Medical History Vitamin B 12 deficiency Knee pain, right Anxiety Osteoarthritis IBS (irritable bowel syndrome) Hypothyroidism Diverticulosis HTN (hypertension) Surgical History H/O colonoscopy History of section Family History Father No problems noted. Mother Hypertension Sister No problems noted. Social History Housing: House Alcohol intake: never Patient Tobacco Use Status: Never used Tobacco e-Cigarette/Vaping Use: Never Used Second Hand Smoke Exposure: No service: No Current occupational status: retired Current occupational exposures/hazards: No Cognitive needs: No Hearing needs: No Vision needs: No Review of Systems Const All systems reviewed & are unremarkable except as noted in HPI and below Reports as per HPI and Reports no additional complaints GI Reports no additional complaints Reports no additional complaints Physical Exam Vital Signs: Last Vital Signs BP 110/60 06/18/23 14:20 BMI result Body Mass Index 27.6 Office Procedures Endometrial Biopsy Details: The patient was counseled regarding the indication and benefits of endometrial sampling to rule out endometrial pathology including not limited to endometrial hyperplasia or endometrial cancer and others; The alternatives (Either do nothing vs. hysteroscopy D&C) & the risks were discussed with the patient including but not limited: pain, uterine perforation, bleeding, infection, possible injury to bladder, bowel, ureter, possible need for blood transfusion with all its possible risks. The patient verbalized understanding all questions answered and signed consent. The patient was placed into the dorsal lithotomy position; a speculum was inserted in the vagina. Using aseptic technique for the procedure, the cervix was cleansed with Betadine. The anterior lip of the cervix was grasped with a single tooth tenaculum. The uterus was sounded to 7 cm with a 4 mm Pipelle was used. Tissues samples were obtained and placed in formalin, in a patient labeled container and sent to the pathology department. At the end of the procedure, there was minimal bleeding noted The patient tolerated the procedure well and was discharged in good condition with the following instructions: Nothing in the vagina until the bleeding stops. No sex until the bleeding stops, to call if any of the following occurs: fever (>100.4), flu-like symptoms, abdominal pain, heavy bleeding, four smelling vaginal discharge. The patient was instructed to schedule a Follow up appointment in 2 weeks to discuss pathology results of the biopsy and treatment options. This note was generated with a voice recognition program. Some errors may have been overlooked during the review of this note. Sometimes these errors may affect the content or meaning of a given sentence. 31327-Lyvxbgeptag Biopsy Assessment & Plan Assessment & Plan (1) Postmenopausal bleeding: Code(s): N95.0 - Postmenopausal bleeding Plan: EMB recommended and performed, see procedure note. Orders: Orders AMB Endometrial Biopsy Today N95.0 - Postmenopausal bleeding Coding Level of Care Code Procedure Only Diagnoses Postmenopausal bleeding N95.0 CPT Codes Endometrial Biopsy - CPT: 80629-[id number] Biopsy ([id number])
== END 2023-06-18 16:11 | disposition home or self-care (01) ==
LOC: HO.HWS 13:47
PROVIDERS: PCP Internal Medicine; Visit Provider Obstetrics & Gynecology
DX: N95.0 Postmenopausal bleeding (principal)
CPT/HCPCS: 58100

== ENCOUNTER 2023-06-26 14:56 | Outpatient (AMB) | payer MEDICARE, MEDICAID, SELFPAY ==
--- NOTE | 2023-06-26 15:04 | A.OFFVIS_ITS ---
Intake Intake Visit Reasons: repeat urine dip/U/S follow up/DO NOT RS Multimedia Educational Specialist Required: Yes Multimedia Educational Specialist Language: Azeri Multimedia Educational Specialist Name: Brando [phone] Information Interpreted: non-clinical & clinical Allergies No Known Allergies Allergy (Verified 06/18/23 14:22) HPI HPI Comments History of Present Illness Details Presenting for repeat urine dip and follow-up EMB , the pathology showed the following: Endometrium, biopsy: Superficial strips of atrophic endometrium; negative for atypia, hyperplasia or malignancy PFSH Medical History Vitamin B 12 deficiency Knee pain, right Anxiety Osteoarthritis IBS (irritable bowel syndrome) Hypothyroidism Diverticulosis HTN (hypertension) Surgical History H/O colonoscopy History of section Family History Father No problems noted. Mother Hypertension Sister No problems noted. Social History Housing: House Alcohol intake: never Patient Tobacco Use Status: Never used Tobacco e-Cigarette/Vaping Use: Never Used Second Hand Smoke Exposure: No service: No Current occupational status: retired Current occupational exposures/hazards: No Cognitive needs: No Hearing needs: No Vision needs: No Review of Systems Const All systems reviewed & are unremarkable except as noted in HPI and below Reports as per HPI and Reports no additional complaints GI Reports no additional complaints Reports no additional complaints Results AMB Urinalysis, Automated UA Leukoctes 2 Garrett/uL Last Edit by ARSALAN Avila on 06/26/23 15:13 UA Nitrite Negative Last Edit by ARSALAN Avila on 06/26/23 15:13 UA Urobilinogen 0 mg/dL Last Edit by ARSALAN Avila on 06/26/23 15:1 3 UA Protein 3 mg/dL Last Edit by ARSALAN Avila on 06/26/23 15:13 UA pH 6.0 Last Edit by ARSALAN Avila on 06/26/23 15:13 UA Blood 3 Neo/uL Last Edit by ARSALAN Avila on 06/26/23 15:13 UA Specific Danevang 1.015 Last Edit by Ibeth Montenegro, ARSALAN on 06/26/23 15:13 UA Ketone Negative Last Edit by Ibeth Montenegro, ARSALAN on 06/26/23 15:13 UA Bilirubin 0 mg/dL Last Edit by Ibeth Montenegro, REINIERA on 06/26/23 15:13 UA Glucose 0 mg/dL Last Edit by Ibeth Montenegro, ARSALAN on 06/26/23 15:13 Assessment & Plan Assessment & Plan (1) 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 Recommended the patient to contact her PCP for further workup regarding her abdominal pelvic pain . (2) Microscopic hematuria: Comment: History of renal pelvis transitional cell malignant neoplasm Code(s): R31.29 - Other microscopic hematuria Plan: The patient gives a history of renal carcinoma status post chemotherapy, has an appointment with her physician in 2 weeks when recommended the patient to follow-up with her labor commissioner regarding hematuria for further manage (3) Postmenopausal bleeding: Code(s): N95.0 - Postmenopausal bleeding Plan: Discussed with the patient the results of the endometrial biopsy showing inactive endometrium. Discussed with the patient the sensitivity, specificity, positive and negative predictive value, of endometrial biopsy in detecting endometrial pathology including but not limited to endometrial hyperplasia, cancer and other pathology; instructed the patient to call in case vaginal bleeding bleeding recurs, the next step will be to proceed with a diagnostic hysteroscopy/D&C for further endometrial sampling evaluation to rule out endometrial pathology. All questions answered and the patient verbalized understanding and agreed with the plan. Orders: Orders AMB Urinalysis Automated Today R31.29 - Other microscopic hematuria US pelvic and transvaginal 6 Months D25.9 - Leiomyoma of uterus, unspecified Coding Level of Care Code Est Pt Level 3 (19474) Diagnoses Uterine myoma D25.9 Microscopic hematuria R31.29 Postmenopausal bleeding N95.0
== END 2023-06-26 15:28 | disposition home or self-care (01) ==
LOC: HO.HWS 14:56
PROVIDERS: PCP Internal Medicine; Visit Provider Obstetrics & Gynecology
DX: D25.9 Leiomyoma of uterus, unspecified (principal); R31.29 Other microscopic hematuria; N95.0 Postmenopausal bleeding
CPT/HCPCS: 99213

== ENCOUNTER → 2023-06-26 14:56 | Outpatient (BNVA) | payer MEDICARE, MEDICAID, SELFPAY | PROVIDERS: PCP Internal Medicine; Visit Provider Obstetrics & Gynecology | DX: D25.9 Leiomyoma of uterus, unspecified (principal); R31.29 Other microscopic hematuria; N95.0 Postmenopausal bleeding | CPT/HCPCS: 81003; 99212 ==

== ENCOUNTER → 2023-07-25 14:07 | Outpatient (BNVA) | payer MEDICARE, MEDICAID, SELFPAY | PROVIDERS: PCP Internal Medicine; Visit Provider Obstetrics & Gynecology ==

== ENCOUNTER 2023-07-26 09:52 | Outpatient (AMB) | payer MEDICARE, MEDICAID, SELFPAY ==
[2023-07-26 09:54] VITALS: BP 126/62; PULSE 74; O2SAT 98; BMI 27.9
--- NOTE | 2023-07-26 09:54 | MHC.PC.OV ---
Vital Signs 07/26/23 09:54 Height 4 ft 11 in Weight 138 lb BMI 27.9 BP 126/62 Blood Pressure Location Lt brachial Position Sitting Pulse 74 Pulse Source Pulse Oximeter Pulse Oximetry (%) 98 Oxygen Delivery Method Room Air Intake Visit Reasons: 6 month follow up HTN Intake Note: Pt is here today for 6 months follow up visit. Allergies No Known Allergies Allergy (Verified 07/26/23 09:56) Medication List - Last Reconciled 07/26/23 by Josselin Up MD albuterol sulfate 90 mcg/actuation (Ventolin HFA) 1 inh inhalation QID PRN aspirin 81 mg PO DAILY barium sulfate 2%(w/v) (Readi-Cat 2) mL PO cetirizine (Zyrtec) 10 mg PO DAILY cholecalciferol (vitamin D3) 25 mcg PO DAILY cyanocobalamin (vitamin B-12) 1,000 mcg PO DAILY furosemide 20 mg PO DAILY levothyroxine 175 mcg PO DAILY losartan-hydrochlorothiazide 50-12.5 mg 1 tab PO DAILY xnptprqciscy-mqcrefyy-ulizik 1 tab PO DAILY oxycodone mg PO polyethylene glycol 3350 (Miralax) 17 grams PO DAILY sertraline (Zoloft) 25 mg PO DAILY trazodone 50 mg PO BEDTIME Tobacco use date assessed: 07/26/23 Fall risk assessment: No Falls in past year Last assessed Fall Risk: 07/26/23 Dental Screening Dental Screen Date: 07/26/23 Did you have a dental visit in the last 12 months?: No Did you have a dental problem in the last 6 months where you did not have access to dental care?: No Was dental information given to patient?: Patient declined HPI 6 month follow up HTN HPI Details Patient presents for the follow-up of hypothyroidism hypertension chronic anxiety stable on current medications. She follows up with Oncology and Urology for renal Ca PFSH Medical History Vitamin B 12 deficiency Knee pain, right Anxiety Osteoarthritis IBS (irritable bowel syndrome) Hypothyroidism Diverticulosis HTN (hypertension) Surgical History H/O colonoscopy History of section Family History Father No problems noted. Mother Hypertension Sister No problems noted. Social History Housing: House Alcohol intake: never Patient Tobacco Use Status: Never used Tobacco e-Cigarette/Vaping Use: Never Used Second Hand Smoke Exposure: No service: No Current occupational status: retired Current occupational exposures/hazards: No Cognitive needs: No Hearing needs: Yes Vision needs: No Questionnaire PHQ-9 Over the last 2 weeks, how often have you been bothered by any of the following problems? 1. Little interest or pleasure in doing things: not at all 2. Feeling down, depressed, or hopeless: several days 3. Trouble falling or staying asleep, or sleeping too much: several days 4. Feeling tired or having little energy: several days 5. Poor appetite or overeating: not at all 6. Feeling bad about yourself - or that you are a failure or have let yourself or your family down: not at all 7. Trouble concentrating on things, such as reading the newspaper or watching television: not at all 8. Moving or speaking so slowly that other people could have noticed. Or the opposite - being so fidgety or restless that you have been moving around a lot more than usual: not at all 9. Thoughts that you would be better off or of hurting yourself in some way: not at all Total score: 3 Depression Screening Interpretation: Negative Depression Screening Done: Yes Source: Developed by Drs. Dewayne Tam, Annie Sanchez, Koby Mercado and colleagues, with an educational eladio from [employer]. Thrive Questionnaire Date Thrive assessed: 07/26/23 I am a: Patient What is your living situation today?: I have a steady place to live Within the past 12 months, did the food you bought not last and you didn't have the money to get more?: Never true Within the past 12 months, did you worry whether your food would run out before you got money to buy more?: Never true Do you have trouble paying for medicines?: No Do you have trouble getting transportation to medical appointments?: No Do you have trouble paying your heating and electricity bill?: No Do you have trouble taking care of your child, family member or friend?: No Do you have trouble with day-to-day activities such as bathing, preparing meals, shopping, managing finances, etc.?: No Are you currently unemployed and looking for a job?: No Are you interested in more education?: No Please select the resources that you would like help with: None THRIVE Score: 0 AUDIT C Alcohol Use Questionnaire (AUDIT-C) 1. How often do you have a drink containing alcohol?: Never 3. How often do you have six or more drinks on one occasion?: Never Total Score: 0 RAFI-7 AMB Questionnaire RAFI-7 Date RAFI - 7 assessed: 07/26/23 Feeling nervous, anxious, or on edge: 0 = Not at all Not being able to stop or control worryin = Not at all Worrying too much about different things: 0 = Not at all Trouble relaxin = Not at all Being so restless that it is hard to sit still: 0 = Not at all Becoming easily annoyed or irritable: 0 = Not at all Feeling afraid as if something awful might happen: 0 = Not at all Total RAFI-7 score (0-4 normal; 5-9 mild; 10-14 moderate; 15-21 severe): 0 Source: Developed by Drs. Dewayne Tam, Annie Sanchez, Koby Mercado and colleagues, with an educational eladio from [employer]. Review of Systems Const All systems reviewed & are unremarkable except as noted in HPI and below Eyes Reports no additional complaints ENT Reports no additional complaints Card Reports no additional complaints Resp Reports no additional complaints GI Reports no additional complaints Reports no additional complaints Physical exam (Primary Care) Vital Signs: Last Vital Signs Pulse 74 07/26/23 09:54 BP 126/62 07/26/23 09:54 Pulse Ox 98 07/26/23 09:54 Oxygen Delivery Method Room Air 07/26/23 09:54 BMI result Body Mass Index 27.9 Tobacco/Smoking Status: Tobacco use Status Tobacco use date assessed 07/26/23 07/26/23 10:01 Patient Tobacco Use Status Never used Tobacco 07/26/23 10:01 e-Cigarette/Vaping Use Never Used 07/26/23 10:01 PHQ-9: PHQ-9 Score PHQ-9: Total score 3 07/26/23 10:01 Depression Screening Interpretation: Negative Thrive Assessment: Date of Thrive Assessment Date Thrive assessed 07/26/23 07/26/23 10:01 Const General: no acute distress HENMT Head: Yes contusion Face and sinus: Yes normal facial exam Neck Neck: Yes supple Resp Effort & Inspection: normal respiratory effort Auscultation: clear to auscultation bilaterally Cardio Rhythm: regular rhythm Heart sounds: S1 normal heart sound present and S2 normal heart sound present GI Inspection: Yes normal to inspection Palpation (GI): Soft to palpation Percussion: Yes normal to percussion Auscultation: normal bowel sounds Assessment and Plan Assessment & Plan (1) Blurred vision: Code(s): H53.8 - Other visual disturbances Plan: Patient follow-up with Ophthalmology (2) HTN (hypertension): Comment: BP goal < 130/80 Code(s): I10 - Essential (primary) hypertension Plan: Continue current medications (3) Hypothyroidism: Code(s): E03.9 - Hypothyroidism, unspecified Plan: Continue levothyroxine (4) Anxiety: Code(s): F41.9 - Anxiety disorder, unspecified Plan: Continue sertraline and trazodone (5) Renal pelvis transitional cell malignant neoplasm: Comment: dx 12/05, f/u Dr. Taylor [facility], getting Chemo good response 07/06 Code(s): C65.9 - Malignant neoplasm of unspecified renal pelvis Plan: Follow-up with urology Orders: Referrals Ophthalmology Referral H53.8 - Other visual disturbances Medications: New levothyroxine 137 mcg PO DAILY 90 tabs 0RF Coding Level of Care Code Est Pt Level 4 (01858) Diagnoses Blurred vision H53.8 HTN (hypertension) I10 Hypothyroidism E03.9 Anxiety F41.9 Renal pelvis transitional cell malignant neoplasm C65.9
== END 2023-07-26 11:24 | disposition home or self-care (01) ==
LOC: HO.HMGC 09:52
PROVIDERS: PCP Internal Medicine; Visit Provider Internal Medicine
DX: H53.8 Other visual disturbances (principal); C65.9 Malignant neoplasm of unspecified renal pelvis; I10 Essential (primary) hypertension; E03.9 Hypothyroidism, unspecified; F41.9 Anxiety disorder, unspecified
CPT/HCPCS: 99214

== ENCOUNTER 2023-12-18 12:42 | Outpatient (REF) | payer MEDICARE, MEDICAID, SELFPAY ==
--- NOTE | ~2023-12-18 | US_ITS ---
EXAMINATION: US PELVIS CLINICAL INFORMATION: Leiomyoma; postmenopausal patient. COMPARISON: Pelvic ultrasound dated 05/02/2023. TECHNIQUE: Ultrasound of the pelvis is performed using both transabdominal and transvaginal transducers along with Doppler. Transvaginal imaging is performed due to inadequate visualization transabdominally. FINDINGS: Uterus: The uterus is anteverted and retroflexed. The uterus measures 7.5 x 2.8 x 5.0 cm. A nabothian cyst is seen within the cervix. There are diffuse myometrial calcifications, with secondary nonvisualization of the endometrial stripe, which is thin. The uterus is smooth in contour and has normal myometrial echogenicity. No visible fibroid. Adnexa: Right ovary measures 2.3 x 1.6 x 2.1 cm, volume 4.1 mm . The left ovary is not visualized. There is no pelvic free fluid. No adnexal mass is seen. US/US pelvic and transvaginal IMPRESSION: 1. There are uterine calcifications, possibly related to tiny fibroids. The previously noted dominant fibroids noted on the prior ultrasound examination are not presently appreciated with certainty. 2. A nabothian cyst is seen within the cervix. 3. The left ovary is not visualized. Electronically signed by: Alli Gonzalez MD 12/22/2023 12:39 AM EDT
== END 2023-12-18 12:43 | disposition home or self-care (01) ==
LOC: HO.US 12:42
PROVIDERS: PCP Internal Medicine; Visit Provider Obstetrics & Gynecology
DX: D25.9 Leiomyoma of uterus, unspecified (principal)
CPT/HCPCS: 76830; 76856

== ENCOUNTER 2024-01-30 15:03 | Outpatient (AMB) | payer MEDICARE, MEDICAID, SELFPAY ==
[2024-01-30 15:05] VITALS: BP 142/80; BMI 25.9
--- NOTE | 2024-01-30 15:05 | A.OFFVIS_ITS ---
Vital Signs 01/30/24 15:05 Height 4 ft 11 in Weight 128 lb BMI 25.9 BP 142/80 H Intake Visit Reasons: 6 month ultra sound follow up Floor Covering Printer Assistant Required: Yes Floor Covering Printer Assistant Language: Chinese Floor Covering Printer Assistant Services: Floor Covering Printer Assistant Present ([employer]) Floor Covering Printer Assistant Name: Mari #[id number] Information Interpreted: non-clinical & clinical Accompanied by: Son Allergies No Known Allergies Allergy (Verified 01/30/24 15:14) Post menopausal: Yes HPI Comments Details: Presenting for six-month ultrasound follow-up regarding uterine myomas seen on ultrasound in 05/09. The patient is doing well with no vaginal bleeding. Pelvic ultrasound done in 01/07 showed the following: Uterus: The uterus is anteverted and retroflexed. The uterus measures 7.5 x 2.8 x 5.0 cm. A nabothian cyst is seen within the cervix. There are diffuse myometrial calcifications, with secondary nonvisualization of the endometrial stripe, which is thin. The uterus is smooth in contour and has normal myometrial echogenicity. No visible fibroid. Adnexa: Right ovary measures 2.3 x 1.6 x 2.1 cm, volume 4.1 mm . The left ovary is not visualized. There is no pelvic free fluid. No adnexal mass is seen. [facility] Medical History Vitamin B 12 deficiency Knee pain, right Anxiety Osteoarthritis IBS (irritable bowel syndrome) Hypothyroidism Diverticulosis HTN (hypertension) Surgical History H/O colonoscopy History of section Family History Father No problems noted. Mother Hypertension Sister No problems noted. Social History Housing: House Alcohol intake: never Patient Tobacco Use Status: Never used Tobacco e-Cigarette/Vaping Use: Never Used Second Hand Smoke Exposure: No service: No Current occupational status: retired Current occupational exposures/hazards: No Cognitive needs: No Hearing needs: Yes Vision needs: No Review of Systems Const All systems reviewed & are unremarkable except as noted in HPI and below Reports as per HPI and Reports no additional complaints GI Reports no additional complaints Reports no additional complaints Assessment & Plan Assessment & Plan (1) Uterine myoma: Code(s): D25.9 - Leiomyoma of uterus, unspecified Category: Medical Plan: Discussed with the patient the ultrasound report showing no fibroids with identified a no abnormalities. Instructions given to patient to call in case of pelvic pain and or pressure vaginal bleeding. All questions answered, the patient verbalized understanding Coding Level of Care Code Est Pt Level 3 (56121) Diagnoses Uterine myoma D25.9
== END 2024-01-30 15:22 | disposition home or self-care (01) ==
LOC: HO.HWS 15:03
PROVIDERS: PCP Internal Medicine; Visit Provider Obstetrics & Gynecology
DX: D25.9 Leiomyoma of uterus, unspecified (principal)
CPT/HCPCS: 99213

== ENCOUNTER → 2024-01-30 15:03 | Outpatient (BNVA) | payer MEDICARE, MEDICAID, SELFPAY | PROVIDERS: PCP Internal Medicine; Visit Provider Obstetrics & Gynecology | DX: D25.9 Leiomyoma of uterus, unspecified (principal) | CPT/HCPCS: 99212 ==

== ENCOUNTER 2024-04-04 12:42 | Outpatient (AMB) | payer MEDICARE, MEDICAID, SELFPAY ==
--- NOTE | 2024-04-04 12:44 | MHC.PC.OV ---
Vital Signs 04/04/24 12:45 Height 4 ft 11 in Weight 132 lb BMI 26.7 BP 124/70 Blood Pressure Location Lt brachial Position Sitting Pulse 84 Pulse Source Pulse Oximeter Pulse Oximetry (%) 96 Oxygen Delivery Method Room Air Intake Visit Reasons: Rash groin area Intake Note: Pt is here today for a [facility] visit. Pt c/o rash in her groin area. Allergies No Known Allergies Allergy (Verified 04/04/24 12:45) Medication List - Last Reconciled 04/04/24 by Josselin Up MD albuterol sulfate 90 mcg/actuation (Ventolin HFA) 1 inh inhalation QID PRN aspirin 81 mg PO DAILY barium sulfate 2%(w/v) (Readi-Cat 2) mL PO cetirizine (Zyrtec) 10 mg PO DAILY cholecalciferol (vitamin D3) 25 mcg PO DAILY cyanocobalamin (vitamin B-12) 1,000 mcg PO DAILY furosemide 20 mg PO DAILY levothyroxine 137 mcg PO DAILY losartan-hydrochlorothiazide 50-12.5 mg 1 tab PO DAILY awhqfntgveer-ketntrot-xzvozj 1 tab PO DAILY polyethylene glycol 3350 (Miralax) 17 grams PO DAILY sertraline (Zoloft) 25 mg PO DAILY trazodone 50 mg PO BEDTIME Tobacco use date assessed: 04/04/24 Fall risk assessment: No Falls in past year Last assessed Fall Risk: 04/04/24 Dental Screening Dental Screen Date: 07/26/23 HPI Rash groin area HPI Details Patient presents complaining of burning rash on the inner thighs for 1 week. Patient denies any change in laundry, detergent, soap or excessive sweating. She has been on a new chemotherapy for renal cancer for the last few months. Hypertension hypothyroidism are controlled on current medications. [facility] Medical History (Updated 04/04/24 @ 14:03 by Josselin Up MD) Vitamin B 12 deficiency Knee pain, right Anxiety Osteoarthritis IBS (irritable bowel syndrome) Hypothyroidism Diverticulosis HTN (hypertension) Surgical History H/O colonoscopy History of section Family History Father No problems noted. Mother Hypertension Sister No problems noted. Social History Housing: House Alcohol intake: never Patient Tobacco Use Status: Never used Tobacco e-Cigarette/Vaping Use: Never Used Second Hand Smoke Exposure: No service: No Current occupational status: retired Current occupational exposures/hazards: No Cognitive needs: No Hearing needs: Yes Vision needs: No Questionnaire Thrive Questionnaire Date Thrive assessed: 07/26/23 RAFI-7 AMB Questionnaire RAFI-7 Date RAFI - 7 assessed: 07/26/23 Source: Developed by Drs. Dewayne Tam, Annie Sanchez, Koby Mercado and colleagues, with an educational eladio from [employer]. Review of Systems Const All systems reviewed & are unremarkable except as noted in HPI and below ENT Reports no additional complaints Card Reports no additional complaints Resp Reports no additional complaints GI Reports no additional complaints Reports no additional complaints Physical exam (Primary Care) Vital Signs: Last Vital Signs Pulse 84 04/04/24 12:45 BP 124/70 04/04/24 12:45 Pulse Ox 96 04/04/24 12:45 Oxygen Delivery Method Room Air 04/04/24 12:45 BMI result Body Mass Index 26.7 Tobacco/Smoking Status: Tobacco use Status Tobacco use date assessed 04/04/24 04/04/24 12:56 Patient Tobacco Use Status Never used Tobacco 04/04/24 12:45 e-Cigarette/Vaping Use Never Used 04/04/24 12:45 Thrive Assessment: Date of Thrive Assessment Date Thrive assessed 07/26/23 04/04/24 12:45 Const General: no acute distress HENMT Head: Yes normal to inspection Neck Neck: Yes supple Resp Effort & Inspection: normal respiratory effort Auscultation: clear to auscultation bilaterally Cardio Rhythm: regular rhythm Heart sounds: S1 normal heart sound present and S2 normal heart sound present GI Inspection: Yes normal to inspection Skin Other: Papular erythematous rash on the inner thighs Coding Level of Care Code Est Pt Level 4 (75276) Diagnoses Rash R21 HTN (hypertension) I10 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 Taylor [facility], getting Chemo good response 07/06 Code(s): C65.9 - Malignant neoplasm of unspecified renal pelvis Category: Medical Plan: Follow-up with oncology and urology Medications: New prednisone 50 mg PO DAILY 7 tabs 0RF
--- OUTSIDE RECORDS SUMMARY | 2024-04-04 12:44 | XMS_ITS | Continuity of Care Document ---
Author Organization [facility] Address [address] [place] [address]- Care Team Providers Care Craft Artist Name Role Phone Annel MONTANO, Josselin Primary Care Physician [id number] Date(s): 02/08/24 - 03/09/24 [facility] [address] [place] [id number] Encounter Type: Triage Allergies, Adverse Reactions, Alerts No Known Allergies Immunizations Given and Recorded Vaccine Date Status Refusal Reason influenza virus vaccine, inactivated 04/07/22 Give n Medications aspirin 81 mg oral tablet, chewable 81 mg, 1, tablet, Daily, Refills 0, Maintenance, 01/11/22 12:52:00 PM EDT, Partial fill upon patientrequest if the prescription is for a schedule II opioid drug. Start Date: 01/11/22 Status: Ordered Repeat number: 1 barium sulfate 2% oral suspension See Instructions, 2 premix 450ml bottles, take as directed for CT scan., # 900 mL, 0 Refills, Maintenance, 12/04/22 2:25:00 PM EDT, [facility] #[id number], Partial fill upon patient request if the prescription is for a schedule II opioid drug., 2 premix 450ml bottles, take as directed for CT scan., 149, cm, 12/01/22 15:26:00 EDT, Height, 65.6, kg, 11/17/22 14:00:00 EDT, Dry Weight Start Date: 12/04/22 Status: Ordered Quantity: 900.0 Unit: mL Repeat number: 1 calcium (as carbonate)-vitamin D 500 mg-600 intl units oral tablet 1 tablet, By Mouth, 2 times a day, # 180 tablet, 1 Refills, Maintenance, 02/25/24 11:16:00 AM EST, Tablet, [facility] #[id number], Partial fill upon patient request if the prescription is for a schedule II opioid drug., 1 tablet By Mouth 2 times a day,x90 days, 165, cm, 02/15/24 15:22:00 EDT, Height, 59.2, kg, 02/07/24 13:34:00 EDT, Dry Weight Start Date: 02/25/24 Stop Date: 08/23/24 Status: Ordered Quantity: 180.0 Unit: tablet Repeat number: 2 Centrum Women 50 Plus Multigummies 0 Refills, Maintenance, 04/06/22 7:32:00 AM EST, Partial fill upon patient request if the prescription is for a schedule II opioid drug. Start Date: 04/06/22 Status: Ordered Repeat number: 1 Cetirizine 0 Refills, Maintenance, 01/11/22 12:49:00 PM EDT, Partial fill upon patient request if the prescription is for a schedule II opioid drug. Start Date: 01/11/22 Status: Ordered Repeat number: 1 Hydrochlorothiazide By Mouth, Daily, 0 Refills, Maintenance, 01/11/22 12:49:00 PM EDT, Partial fill upon patient requestif the prescription is for a schedule II opioid drug. Start Date: 01/11/22 Status: Ordered Repeat number: 1 levothyroxine 0.137 mg oral tablet 1 tablet, By Mouth, Daily, TAKE ON AN EMPTY STOMACH, WITH PLENTY OF WATER; AVOID ANTACIDS/CALCIUM/ IRON FOR AT LEAST 4 HOURS, # 90 tablet, 0 Refills, Maintenance, 12/31/23 9:23:00 AM EDT, [facility] #[id number], 165, cm, 12/28/23 13:58:00 EDT, Height, 59.4, kg, 12/06/23 13:24:00 EDT, Dry Weight Start Date: 12/31/23 Status: Ordered Quantity: 90.0 Unit: tablet Repeat number: 1 levothyroxine 150 mcg (0.15 mg) oral tablet 1 tablet, By Mouth, Daily, # 90 tablet, 0 Refills, Maintenance, 10/03/23 11:03:00 AM EDT, [facility] #[id number], 165, cm, 10/02/23 14:34:00 EDT, Height, 61, kg, 10/02/23 13:17:00 EDT, Dry Weight Start Date: 10/03/23 Status: Ordered Quantity: 90.0 Unit: tablet Repeat number: 1 lidocaine-prilocaine 2.5%-2.5% topical cream See Instructions, APPLY TOPICALLY TO THE AFFECTED AREA 1 TIME APPLY THIN LAYER OVER HEALED PORT SITE UP TO 60 MINUTES BEFORE PORT USE, # 30 Gm, 0 Refills, Maintenance, 12/24/23 8:27:00 AM EDT, [facility] #[id number], 15, APPLY TOPICALLY TO THE AFFECTED AREA 1 TIME APPLY THIN LAYER OVER HEALED PORT SITE UP TO 60 MINUTES BEFORE PORT USE, 165, cm, 12/14/23 14:05:00 EDT, Height, 59.4, kg, 12/05/2412:24:00 EDT, Dry Weight Start Date: 12/24/23 Status: Ordered Quantity: 30.0 Unit: g Repeat number: 1 loperamide 2 mg oral capsule 4 mg, 2, capsule, By Mouth, Every 4 hours, not to exceed 8 capsules, or 16 mg, in 24 hours after each loose stool, # 60 capsule, Refills 1, Tot. Refills 1, Maintenance, 04/27/22 5:12:00 PM EST, Route to Pharmacy Electronically, [facility] #[id number], Partial fill upon patient request if the prescription is for a schedule II opioid drug., 149, cm, 04/27/22 13:25:00 EST, Height, 67.1, kg, 04/27/22 13:25:00 EST, Dry Weight Start Date: 04/27/22 Status: Ordered Quantity: 60.0 Unit: capsule Repeat number: 2 Losartan By Mouth, Daily, 0 Refills, Maintenance, 01/11/22 12:52:00 PM EDT, Partial fill upon patient requestif the prescription is for a schedule II opioid drug. Start Date: 01/11/22 Status: Ordered Repeat number: 1 mirtazapine 15 mg oral tablet 1 tablet = 15 mg, By Mouth, Daily at bedtime, # 90 tablet, 1 Refills, Maintenance, 02/07/24 1:54:00PM EDT, [facility] #[id number], Partial fill upon patient request if the prescription is for aschedule II opioid drug., 165, cm, 02/07/24 13:34:00 EDT, Height, 59.2, kg, 02/07/24 13:34:00 EDT, Dry Weight Start Date: 02/07/24 Stop Date: 08/05/24 Status: Ordered Quantity: 90.0 Unit: tablet Repeat number: 2 ondansetron 8 mg oral tablet 1 tablet = 8 mg, By Mouth, Every 8 hours, PRN Nausea & Vomiting, # 20 tablet, 0 Refills, Maintenance, 09/01/22 4:30:00 PM EDT, Tablet, [facility] #[id number], Partial fill upon patient request if the prescription is for a schedule II opioid drug., 149, cm, 08/18/22 14:35:00 EDT, Height, 67.8, kg, 08/16/22 14:03:00 EDT, Dry Weight Start Date: 09/01/22 Status: Ordered Quantity: 20.0 Unit: tablet Repeat number: 1 oxyCODONE 5 mg oral tablet 5 mg, 1, tablet, By Mouth, Every 6 hours, PRN, # 60 tablet, Refills 0, Tot. Refills 0, Maintenance,Pain , Moderate, 02/07/24 1:53:00 PM EDT, Route to Pharmacy Electronically, [facility] #[id number], Partial fill upon patient request if the prescription is for a schedule II opioid drug., 165, cm, 02/07/24 13:34:00 EDT, Height, 59.2, kg, 02/07/24 13:34:00 EDT, Dry Weight Start Date: 02/07/24 Stop Date: 02/21/24 Status: Ordered Quantity: 60.0 Unit: tablet Repeat number: 1 potassium chloride 20 mEq oral tablet, extended release 1 tablet = 20 mEq, By Mouth, Daily, for 30 days, # 30 tablet, 0 Refills, Hard Stop 03/16/24 4:13:00 PM EST, 02/15/24 4:13:00 PM EDT, ER Tablet, [facility] #[id number], Partial fill upon patient request if the prescription is for a schedule II opioid drug., 165, cm, 02/15/24 15:22:00 EDT, Height,59.2, kg, 02/07/24 13:34:00 EDT, Dry Weight Start Date: 02/15/24 Stop Date: 03/16/24 Status: Ordered Quantity: 30.0 Unit: tablet Repeat number: 1 potassium chloride 20 mEq oral tablet, extended release 1 tablet = 20 mEq, By Mouth, Daily, # 30 tablet, 2 Refills, Maintenance, 03/16/24 4:13:00 PM EST, ERTablet, [facility] #[id number], Partial fill upon patient request if the prescription is for aschedule II opioid drug., 165, cm, 02/29/24 13:50:00 EST, Height, 59.2, kg, 02/07/24 13:34:00 EDT, Dry Weight Start Date: 03/16/24 Stop Date: 06/14/24 Status: Ordered Quantity: 30.0 Unit: tablet Repeat number: 3 prochlorperazine 5 mg oral tablet 1 tablet = 5 mg, By Mouth, Every 6 hours, PRN Nausea, when starts chemo, # 30 tablet, 3 Refills, Maintenance, 08/01/23 12:56:00 PM EDT, [facility] #[id number], Partial fill upon patient request if the prescription is for a schedule II opioid drug., 165, cm, 07/31/23 9:36:00 EDT, Height, 64.1, kg, 07/30/23 20:24:00 EDT, Dry Weight Start Date: 08/01/23 Status: Ordered Quantity: 30.0 Unit: tablet Repeat number: 4 Readi-Cat 2 oral suspension See Instructions, 2 premixed 450 mL bottles, take as directed, # 900 mL, 0 Refills, Maintenance, 06/09/22 11:26:00 AM EST, [facility] #[id number], Partial fill upon patient request if the prescription is for a schedule II opioid drug., 2 premixed 450 mL bottles, take as directed, 163, cm, 06/09/22 10:47:00 EST, Height, 66.2, kg, 06/09/22 10:47:00 EST, Dry Weight Start Date: 06/09/22 Status: Ordered Quantity: 900.0 Unit: mL Repeat number: 1 Problem List Condition Confirmation Course Effective Dates Status H ealth Status Informant Acquired hypothyroidism Confirmed Active 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 Social History Social History Type Response Smoking Status Never (less than 100 in lifetime) entered on: 12/29/22 Sex Sex Representation Female (finding) Patient Care team information Care Team Personnel Name: Josselin Up MD Position: [facility] Physician - Primary Care Member Role: PCP Address: [address], [place] [address] Telecom: Name: Maryanne Vickers RN Position: [facility] Onco RN Member Role: Primary Care Nurse Name: Inez Cuevas Position: [facility] Outreach Member Role: [employer] Consulting Physician Name: Saleem Sparrow RN Position: [facility] Onco RN Member Role: Primary Care Nurse Name: Alla Hogan [place] Position: [facility] [place] Member Role: Primary Care Nurse Name: Stefan Swann RN Position: [facility] RN Member Role: Primary Care Nurse Name: Juju Donaldson RN Position: [facility] Onco RN Member Role: Primary Care Nurse Care Team Related Persons Name: ROSALINDA ZAPIEN Name: MATTHEW PRADO Insurance Providers Guarantor name: JESSEE ZAPIEN Health Plan Information #: 1 Payer: MEDICARE [id number] [employer] Member Number: NA Policy Number: NA Group Number: NA Health Plan Information #: 2 Payer: [facility] [employer] Member Number: NA Policy Number: NA Group Number: NA
[2024-04-04 12:45] VITALS: BP 124/70; PULSE 84; O2SAT 96; BMI 26.7
== END 2024-04-04 14:04 | disposition home or self-care (01) ==
PROVIDERS: PCP Internal Medicine; Visit Provider Internal Medicine
DX: R21 Rash and other nonspecific skin eruption (principal); I10 Essential (primary) hypertension; C65.9 Malignant neoplasm of unspecified renal pelvis

== ENCOUNTER → 2024-04-04 12:42 | Outpatient (BNVA) | payer MEDICARE, MEDICAID, SELFPAY | PROVIDERS: PCP Internal Medicine; Visit Provider Internal Medicine | DX: R21 Rash and other nonspecific skin eruption (principal); I10 Essential (primary) hypertension; E03.9 Hypothyroidism, unspecified; C65.9 Malignant neoplasm of unspecified renal pelvis | CPT/HCPCS: 99212 ==